=== PATIENT | male | born 1995 | race Caucasian/White ===

== ENCOUNTER 2017-01-06 19:26 | Emergency (ER) | payer OTHER ==
[~2017-01-06] VITALS: Ht 185.4 cm; Wt 63.5 kg
[~2017-01-06 19:26] MED LIST: ACETAMINOPHEN-1 EAC1 ORAL; AMOXICILLIN500 MG PO; AZITHROMYCIN250 MG ORAL; IBUPROFEN600 MG PO; NKM; PENICILLIN V P500 MG PO; PREDNISONE20 MG ORAL; PROMETHAZINE-C118 M1 ORAL; ROBAXIN-750750 MG PO; VICODIN ES 7.51 EACH PO
[2017-01-06] MEDS ORDERED: AMOXICILLIN500 MG ORAL (20:00)
[2017-01-06] MEDS ORDERED: TESSALON PERLE100 MG ORAL (20:00)
[2017-01-06 20:07] VITALS: BP_SYST 119; BP_SYST 123; BP_DIAS 68; BP_DIAS 72
--- NOTE | 2017-01-06 21:28 | Emergency Room Report ---
History of Present Illness General Chief Complaint: Sore Throat Source: Patient Present Illness [facility] The patient is a 21-year-old male presenting for subjective fevers, chills, sore throat, nonproductive cough for the past 3 days. He denies any known sick contacts or recent travel. He states pain is a 6/10 dull ache to the back of the throat and is worse with swallowing. No radiating pain. He denies any other symptoms including N, V, SOB, neck stiffness, [place] Allergies: Coded Allergies: No Known Allergies (Unverified , 09/04/12) Patient History Past Medical History: see triage record Pertinent Family History: none Reviewed Nursing Documentation: PMH: Agreed, PSxH: Agreed Nursing Documentation-PMH Past Medical History: No History, Except For Hx Asthma: Yes Review of Systems All Other Systems: negative except mentioned in HPI Physical Exam Vital Signs Date Time Temp Pulse Resp B/P Pulse Ox O2 Delivery O2 Flow Rate FiO2 01/06/17 19:31 98.2 99 15 123/72 96 Room Air Sp02 EP Interpretation: reviewed, normal General Appearance: no apparent distress, alert, GCS 15, non-toxic Head: normocephalic, atraumatic Eyes: bilateral eye PERRL, bilateral eye normal inspection ENT: hearing grossly normal, no angioedema, normal voice, tonsillar swelling, pharyngeal erythema, tonsillar exudate Neck: full range of motion, supple/symm/no masses Respiratory: chest non-tender, lungs clear, normal breath sounds, no wheezing, speaking full sentences Cardiovascular #1: regular rate, rhythm, no edema Musculoskeletal: back normal, gait/station normal, normal range of motion, non- tender Neurologic: alert, oriented x3, responsive, motor strength/tone normal, sensory intact, speech normal Psychiatric: judgement/insight normal, memory normal, mood/affect normal, no suicidal/homicidal ideation Skin: normal color, no rash, warm/dry, well hydrated Lymphatic: adenopathy Medical Decision Making PA Attestation Dr. Streeter is my supervising physician. Patient management was discussed with my supervising physician Diagnostic Impression: Primary Impression: Pharyngitis, acute Qualified Codes: J02.9 - Acute pharyngitis, unspecified ER Course The patient is a 21-year-old male presenting for subjective fevers, chills, sore throat, nonproductive cough Differential diagnosis include but not limited to pharyngitis, sinusitis, AOM, bronchitis, PNA Physical exam: Vitals within normal limits. Afebrile. No apparent distress HEENT exam: There is bilateral tonsillar edema, erythema, and exudate. Uvula midline. Moist mucous membranes. There is bilateral cervical lymphadenopathy. Lungs are clear to auscultation bilaterally Skin is warm and dry. No rash The patient will be discharged home with a prescription for amoxicillin and is given ER precautions. Patient will followup with primary care Last Vital Signs Date Time Temp Pulse Resp B/P Pulse Ox O2 Delivery O2 Flow Rate FiO2 01/06/17 20:07 98.2 15 123/72 96 Room Air 01/06/17 20:07 94 Status: improved Disposition: HOME, SELF-CARE Condition: Improved Scripts Benzonatate* (TESSALON PERLE*) 100 Mg Capsule 100 MG ORAL THREE TIMES A DAY, #15 PERLE Prov: MODESTO VELA.A. 01/06/17 Amoxicillin* (AMOXIL*) 500 Mg Capsule 500 MG ORAL Q12HR, #20 CAP Prov: MODESTO VELAANikia 01/06/17 Referrals: [facility] (PCP) Patient Instructions: Pharyngitis Additional Instructions: I discussed my findings with the patient. All questions and concerns have been answered. Treatment and medication compliance have been addressed. I advised the patient that they need to follow up with PMD in 3-5 days. Return to ED if pain remains or worsens, cough worsens or remains, you notice blood in your sputum, you notice wheezing, you experience a fever, or if needed for any reason. Patient verbalized understanding of discharge instructions. MODESTO VELA Jan 06, 2017 21:27
== END 2017-01-06 20:07 | disposition home or self-care (01) ==
LOC: EMR 19:55
DX: J02.9 Acute pharyngitis, unspecified (principal); J45.909 Unspecified asthma, uncomplicated
CPT/HCPCS: 99284